=== PATIENT | female | born 1960 | race Caucasian/White ===

== ENCOUNTER 2020-03-31 07:18 | Outpatient (CLI) | payer BC | END 2020-03-31 23:59 | disposition home or self-care (01) | LOC: CARD 07:18 | PROVIDERS: ATTEND Thoracic Surgery (Cardiothoracic Vascular Surgery) | DX: C34.10 Malignant neoplasm of upper lobe, unspecified bronchus or lung (principal); J98.4 Other disorders of lung | CPT/HCPCS: 94060; 94726; 94729 ==